=== PATIENT | female | born 1990 | race Caucasian/White ===

== ENCOUNTER 2022-11-12 06:50 | Inpatient (IN) | payer BC ==
[2022-11-12] MEDS ORDERED: DINOPROSTONE 10 MG VAGINAL SUPPOSITORY VG ONE (07:43)
[2022-11-12 09:21] VITALS: BMI 26.4
[2022-11-12 09:28] LABS: BASO % 0.2 % (0-2.0); EOS % 0.5 % (0-4.5); HEMATOCRIT 35.9 % (32.4-45.2); HEMOGLOBIN 12.6 GM/dL (10.7-15.3); LYMPH % 14.5 % (8-40); MCH 31.1 pg (25.7-33.7); MCHC 35.1 g/dl (32.0-36.0); MEAN CELL VOLUME 88.6 fl (80-96); MONO % 8.4 % (3.8-10.2); NEUT % 76.4 % (42.8-82.8); PLATELET COUNT 225 10^3/uL (134-434); RBC 4.05 M/mm3 (3.60-5.2); RDW 12.6 % (11.6-15.6); WHITE BLOOD COUNT 10.4 K/mm3 (4.0-10.0)
[2022-11-12 09:31] LABS: INR 0.93 (0.83-1.09); PROTHROMBIN TIME (PATIENT) 10.8 SEC (9.7-13.0)
[2022-11-12 09:34] LABS: ACTIVATED PTT 25.3 SECONDS (25.2-36.5)
[2022-11-12 09:41] LABS: CALCIUM 8.7 mg/dL (8.5-10.1)
[2022-11-12 09:42] LABS: BLOOD UREA NITROGEN 9.3 mg/dL (7-18)
[2022-11-12 09:45] LABS: CREATININE 0.5 mg/dL (0.55-1.3)
[2022-11-12 10:50] LABS: HIV INTERPRETATION NEGATIVE (NEGATIVE)
[2022-11-12] MEDS: DEXTROSE 5%-LACTATED RINGERS 1,000 ML IV SCH (14:20)
[2022-11-12] MEDS ORDERED: PROMETHAZINE HCL 25 MG/1 ML VIAL IVPB ONE (15:52)
[2022-11-12] MEDS ORDERED: BUTORPHANOL TARTRATE 1 MG/ML VIAL IVPUSH ONE (15:52)
[2022-11-12] MEDS ORDERED: PROMETHAZINE HCL 25 MG/1 ML VIAL ONE (16:09)
[2022-11-12] MEDS ORDERED: BUTORPHANOL TARTRATE 2 MG/ML VIAL ONE (16:09)
[2022-11-12] MEDS ORDERED: OXYTOCIN 30 UNITS in 0.9% NS 30 UNIT/500 ML INFUS.BAG IVPB ONE (20:59)
[2022-11-12] MEDS ORDERED: OXYTOCIN 30 UNITS in 0.9% NS 30 UNIT/500 ML INFUS.BAG IVPB SCH (21:00)
[2022-11-13] MEDS ORDERED: FENTANYL/BUPIVACAINE/NS/PF - PCEA - 50 ML DISP.SYRIN EP ONE ×2 (00:24→04:08)
[2022-11-13] MEDS ORDERED: LIDO 2%/EPI 1:200000 PRESRVFRE (20 ML SDVIAL) ONE (00:31)
[2022-11-13] MEDS ORDERED: BUPIVACAINE HCL/PF 0.25% (2.5MG/ML) 10 ML VIAL ONE ×2 (00:31→03:21)
[2022-11-13] MEDS ORDERED: NALOXONE HCL 0.4 MG/ML VIAL IVPUSH PRN (01:28)
[2022-11-13] MEDS ORDERED: FENTANYL/BUPIVACAINE/NS/PF - PCEA - 50 ML DISP.SYRIN EP SCH ×2 (01:30→01:50)
[2022-11-13] MEDS ORDERED: FENTANYL CITRATE/PF 50 MCG/ML VIAL ONE (03:21)
[2022-11-13] MEDS ORDERED: OXYTOCIN 20 UNITS in 0.9% NS 20 UNIT/1,000 ML INFUS.BAG IV ONE (04:22)
[2022-11-13 07:25] LABS: CORD HCO3 25.3 mmHg (20-29); CORD PCO2 66.3 mmHg (30-78)
[2022-11-13 07:27] LABS: CORD HCO3 21.3 mmHg (20-29); CORD PCO2 40.2 mmHg (30-78); CORD pH 7.343 (7.14-7.44)
[2022-11-13] MEDS ORDERED: WITCH HAZEL 50% (TUCKS) 40 PAD/JAR PAD TP PRN (07:35)
[2022-11-13] MEDS ORDERED: BISACODYL 10 MG SUPP.RECT RC PRN (07:35)
[2022-11-13] MEDS ORDERED: oxyCODONE HCL 5 MG TABLET PO PRN (07:35)
[2022-11-13] MEDS ORDERED: BENZOCAINE 20% 57 GM BOTTLE TP PRN (07:35)
[2022-11-13] MEDS ORDERED: METHYLERGONOVINE MALEATE 0.2 MG/1 ML AMP IM PRN (07:35)
[2022-11-13] MEDS ORDERED: BENZOCAINE 28 GM HEMORRHOIDAL OINTMENT TP PRN (07:35)
[2022-11-13] MEDS ORDERED: IBUPROFEN 600 MG TABLET (FP) PO PRN (07:35)
[2022-11-13] MEDS ORDERED: ACETAMINOPHEN 325 MG TABLET (FP) PO PRN (07:35)
[2022-11-13] MEDS ORDERED: OXYTOCIN 20 UNITS in 0.9% NS 20 UNIT/1,000 ML INFUS.BAG IV SCH (07:45)
[2022-11-13] MEDS: DEXTROSE 5%-LACTATED RINGERS 1,000 ML IV SCH (09:08)
[2022-11-14 07:30] LABS: BASO % 0.2 % (0-2.0); EOS % 0.8 % (0-4.5); HEMATOCRIT 30.5 % (32.4-45.2); HEMOGLOBIN 10.9 GM/dL (10.7-15.3); LYMPH % 16.8 % (8-40); MCH 31.9 pg (25.7-33.7); MCHC 35.6 g/dl (32.0-36.0); MEAN CELL VOLUME 89.6 fl (80-96); MEAN PLT VOLUME 8.4 fl (7.5-11.1); MONO % 6.8 % (3.8-10.2); NEUT % 75.4 % (42.8-82.8); PLATELET COUNT 208 10^3/uL (134-434); RBC 3.41 M/mm3 (3.60-5.2); RDW 12.9 % (11.6-15.6); WHITE BLOOD COUNT 14.8 K/mm3 (4.0-10.0)
[2022-11-14] MEDS ORDERED: SENNOSIDES/DOCUSATE COMBO (SENNA PLUS) TABLET (UD) PO PRN (22:00)
[2022-11-14 22:11] VITALS: TEMP 97.7
[2022-11-15 12:01] VITALS: BP 116/75; PULSE 99; RESP 17
== END 2022-11-15 13:30 | disposition home or self-care (01) | DRG 807 ==
LOC: JLDR 06:50 → J3W 11-13 13:05
PROVIDERS: ADMIT Obstetrics & Gynecology; ATTEND Obstetrics & Gynecology
PROC: 10E0XZZ Delivery of Products of Conception, External Approach (ICD-10-PCS; principal; 2022-11-13)
PROC: 0W8NXZZ Division of Female Perineum, External Approach (ICD-10-PCS; 2022-11-13)
DX: O48.0 Post-term pregnancy (principal); Z37.0 Single live birth; Z3A.41 41 weeks gestation of pregnancy
CPT/HCPCS: 36415; 36600; 80048; 82803; 85025; 85610; 85730; 86780; 86850; 86900; 86901; 87389; C9803-CS; U0003; U0005